=== PATIENT | female | born 1945 | race Caucasian/White ===

== ENCOUNTER 2020-05-07 08:28 | Day surgery (SDC) | payer MEDICARE, OTHER ==
[2020-04-30 12:14] LABS: BASOPHILS % (AUTO) 0.7 % (0-1); EOSINOPHILS # (AUTO) 0.1 X10'3 (0-0.9); EOSINOPHILS % (AUTO) 1.2 % (0-6); LYMPHOCYTES # (AUTO) 1.6 X10'3 (1.1-4.8); LYMPHOCYTES % (AUTO) 29.6 % (21-51); MEAN CORPUSCULAR HEMOGLOBIN 29.5 PG (27.0-31.0); MEAN CORPUSCULAR HGB CONC 32.5 g/dL (33.0-36.5); MEAN CORPUSCULAR VOLUME 90.9 FL (78-98); MEAN PLATELET VOLUME 8.2 FL (7.4-10.4); MONOCYTES # (AUTO) 0.4 X10'3 (0-0.9); MONOCYTES % (AUTO) 7.5 % (2-12); NEUTROPHILS # (AUTO) 3.4 X10'3 (1.8-7.7); PRE OP HEMATOCRIT 42.4 % (35.0-45.0); PRE OP HEMOGLOBIN 13.8 g/dL (12.0-16.0); PRE OP PLATELET COUNT 200 X10'3 (140-440); RED BLOOD COUNT 4.66 X10'6 (4.20-5.60); RED CELL DISTRIBUTION WIDTH 14.6 % (11.5-14.5)
[2020-04-30 12:31] LABS: HEMOGLOBIN A1C 6.8 % (4.5-6.2)
[2020-04-30 12:35] LABS: ALBUMIN 3.6 G/DL (3.4-5.0); ALBUMIN/GLOBULIN RATIO 0.9 (1.1-1.5); ALKALINE PHOSPHATASE 83 IU/L (46-116); BLOOD UREA NITROGEN 24 MG/DL (7-18); BUN/CREATININE RATIO 29.6 (6.6-38.0); CALCIUM 9.1 MG/DL (8.5-10.1); CHLORIDE 106 MMOL/L (99-107); CREATININE 0.81 MG/DL (0.40-0.90); PRE OP ALT 56 U/L (30-65); PRE OP ANION GAP 7 (8-16); PRE OP AST 39 U/L (10-37); PRE OP BILIRUB, TOTAL 0.5 MG/DL (0.0-1.0); PRE OP GLUCOSE 119 MG/DL (70-104); PRE OP POTASSIUM 4.4 MMOL/L (3.4-5.1); PRE OP SODIUM 142 MMOL/L (135-145); TOTAL CARBON DIOXIDE 28.7 MMOL/L (24-32); TOTAL PROTEIN 7.6 G/DL (6.4-8.2); eGFR 69 ML/MIN
[2020-05-07] VITALS (17 sets, daily range): BP systolic 120–162; BP diastolic 60–96
[~2020-05-07] VITALS: Ht 165.1 cm; Wt 77.1 kg
[~2020-05-07 08:28] MED LIST: ATOR-2 PO; DICL-182 PO; INSU100I8 SQ; INSU100V9 SQ; LEVO100T9 PO; LISI-604 PO; OMEP-50 PO; [UNRECOGNIZED DRUG - CODE] SQ; cefazolin/dext.iso 2gm/50ml 50 ML IV ONE; famotidine 20mg tablet PO ONE; ringers solution, lacted 1,000 ML IV SCH; tranexamic acid inj. 770 MG in normal saline 100ml IV soln 100 ML IV ONE; vancomycin 1,500 MG in NS 300ml IV soln IV ONE
[2020-05-07] MEDS ORDERED: morphine 2 MG/ML inj. syringe IV PRN (09:30)
[2020-05-07] MEDS ORDERED: ringers solution, lacted 1,000 ML IV SCH (09:30)
[2020-05-07] MEDS ORDERED: proCHLORperazine 10 MG/2 ml inj IV PRN (09:30)
[2020-05-07] MEDS ORDERED: meperidine/PF 25mg/ml syringe IV PRN ×3 (09:30)
[2020-05-07] MEDS ORDERED: ondansetron/PF 4mg/2ml inj IV PRN ×2 (09:30→14:10)
[2020-05-07] MEDS ORDERED: morphine 4 MG/ML inj SYRINge IV PRN (09:30)
--- NOTE | 2020-05-07 10:52 | NUR ---
[facility] REFERRAL PER DR HURST TO BEGIN [facility] TOMORROW. PLANNED D/C HOME POST OP LATER TODAY IF ABLE PER PT REQUEST. SPOKE WITH NATHANIEL IN CASE MANAGEMENT, SHE WILL INITIATE A HOME CARE REFERRAL AND FOLLOW UP NEEDED.
[2020-05-07] MEDS ORDERED: fentaNYL/PF 50MCG/1 ML 2ML syringe ONE (11:38)
[2020-05-07] MEDS ORDERED: ROPIVAcaine 0.5% (5mg/ml) 30ml vial ONE (11:38)
[2020-05-07] MEDS ORDERED: MIDAZolam 5mg/5ml vial ONE (11:39)
[2020-05-07] MEDS ORDERED: ROPIVAcaine 0.5% (5mg/ml) 30ml vial IJ ONE (13:10)
[2020-05-07] MEDS ORDERED: ketorolac trometh. 30mg/ml inj. IM ONE (13:11)
[2020-05-07] MEDS ORDERED: ROPIVAcaine 0.2%/PF PUMP/bolus 550 ML ADDCANAL SCH (13:20)
[2020-05-07] MEDS ORDERED: ROPIVAcaine 0.2% (10 MG/5 ML) BOLUS INJECTION ADDCANAL PRN (13:20)
[2020-05-07] MEDS ORDERED: acetaminophen 325mg tablet PO PRN (14:10)
[2020-05-07] MEDS ORDERED: non-formulary drug (Insulin Lispro (Humalog) 1 UNITS) SQ PRN (14:10)
[2020-05-07] MEDS ORDERED: oxyCODONE IR 5mg (immed. release) tablet PO PRN ×2 (14:10)
[2020-05-07] MEDS ORDERED: bisacodyl 10mg suppository rectal RC PRN (14:10)
[2020-05-07] MEDS ORDERED: diphenhydrAMINE 25mg capsule PO PRN ×2 (14:10)
[2020-05-07] MEDS ORDERED: HYDROmorphone 1 mg/ml syringe IV PRN (14:10)
[2020-05-07] MEDS ORDERED: magnesium hydroxide 30ml (MOM) UD suspension PO PRN (14:10)
[2020-05-07] MEDS ORDERED: HYDROmorphone inj. 0.5 MG/0.5 ML DISP.SYRIN IV PRN (14:10)
[2020-05-07] MEDS ORDERED: WALKERFR (14:12)
--- NOTE | 2020-05-07 14:28 | NUR ---
Received from OR via ORTHO BED , accompanied by Anesthesiologist DR QUINN and report given by Anesthesiolgist. SPINAL SENSATION AT MID THIGH LEVEL. DRSG TO LEFT KNEE CDI. POWEDER PACK IN PLACE. KNEE WRAP ON. IV INFUSING LR.
[2020-05-07] MEDS ORDERED: insulin Lispro (HumaLOG) vial - multi-dose SQ SCH (14:30)
--- NOTE | 2020-05-07 15:48 | NUR ---
PT TO ROOM 4022 B VIA ORTHO BED. REPORT GIVEN TO CORNELIO LLOYD WHO ASSUMED CARE OF PT. PT ORIENTED TO ROOM AND CALL LIGHT. BED LOW, LOCKED, RAILS UP X 2. CALL LIGHT IN REACH. BELONGING BAG TO PACU X 1, GLASSES IN BELONGING BAG. PT DENIES ANY MORE NAUSEA, NO PAIN AND STATES SHE IS READY FOR TRANSFER TO ORTHO FLOOR.
[2020-05-07] MEDS ORDERED: tranexamic acid inj. 800 MG in normal saline 100ml IV soln 100 ML IV ONE (17:00)
--- NOTE | 2020-05-07 18:15 | NUR ---
Patient in room ORTHO 4022. I have received report from PREMA Gates and had the opportunity to ask questions and assume patient care.
--- NOTE | 2020-05-07 18:42 | NUR ---
Problems reprioritized. Patient report given, questions answered & plan of care reviewed with PREMA Delgado.
[2020-05-07] MEDS ORDERED: DICLOFENAC 75 MG PO SCH (20:00)
[2020-05-07] MEDS ORDERED: vancomycin/NS 1 GM ADD-VANTAGE 250 ML IV SCH (20:00)
[2020-05-07] MEDS: gabapentin 300mg capsule PO SCH (20:27)
[2020-05-07] MEDS: acetaminophen 325mg tablet PO SCH (20:28)
[2020-05-07] MEDS: ceFAZolin 1GM/D5W- ADD-VANTAGE 50 ML IV SCH (20:28)
[2020-05-07] MEDS: potassium cl 20mEq in 1/2 NS 1,000 ML IV SCH ×2 (20:28→22:10)
[2020-05-07] MEDS: insulin glargine (Lantus) pen - multi-dose SQ SCH (20:38)
[2020-05-07] MEDS ORDERED: sennosides 8.6mg tablet PO SCH (21:00)
--- NOTE | 2020-05-07 21:26 | NUR ---
Pt blood sugar 298, pt requesting 16 units of [address]. Called Dr. Guillen, he stated to give pt 10 units of humalog.
[2020-05-07] MEDS ORDERED: insulin Lispro (HumaLOG) vial - multi-dose SQ ONE (21:30)
[2020-05-08] MEDS: ceFAZolin 1GM/D5W- ADD-VANTAGE 50 ML IV SCH (01:07)
[2020-05-08] MEDS: acetaminophen 325mg tablet PO SCH ×2 (01:14→09:07)
[2020-05-08 02:00] VITALS: BP 123/56
[2020-05-08 05:57] LABS: BASOPHILS % (AUTO) 0.1 % (0-1); EOSINOPHILS % (AUTO) 0 % (0-6); HEMATOCRIT 35.7 % (35.0-45.0); HEMOGLOBIN 11.8 g/dl (12.0-16.0); LYMPHOCYTES # (AUTO) 0.9 X10'3 (1.1-4.8); LYMPHOCYTES % (AUTO) 11.6 % (21-51); MEAN PLATELET VOLUME 8.3 FL (7.4-10.4); MONOCYTES # (AUTO) 0.3 X10'3 (0-0.9); MONOCYTES % (AUTO) 4.3 % (2-12); NEUTROPHILS # (AUTO) 6.6 X10'3 (1.8-7.7); PLATELET COUNT 159 X10'3 (140-440); RED BLOOD COUNT 3.92 X10'6 (4.20-5.60); RED CELL DISTRIBUTION WIDTH 14.2 % (11.5-14.5); WHITE BLOOD COUNT 7.9 X10'3 (4.5-11.0)
[2020-05-08 06:00] VITALS: BP 131/65
[2020-05-08 06:01] LABS: ANION GAP 7 (8-16); CHLORIDE 106 MMOL/L (99-107); SODIUM 137 MMOL/L (135-145); TOTAL CARBON DIOXIDE 23.7 MMOL/L (24-32)
--- NOTE | 2020-05-08 06:28 | NUR ---
Problems reprioritized. Patient report given, questions answered & plan of care reviewed with PREMA Saenz.
[2020-05-08] MEDS ORDERED: pantoprazole 40mg Tablet.DR PO SCH (07:30)
[2020-05-08] MEDS ORDERED: levoTHYROXINE 100mcg tablet PO SCH (08:00)
[2020-05-08] MEDS ORDERED: atorvastatin 20mg tablet PO SCH (08:00)
[2020-05-08] MEDS ORDERED: lisinopril 5mg tablet PO SCH (08:00)
[2020-05-08] MEDS ORDERED: aspirin 325mg tablet PO SCH (08:30)
[2020-05-08] MEDS: gabapentin 300mg capsule PO SCH (09:06)
[2020-05-08 09:08] VITALS: BP_SYST 120
[2020-05-08] MEDS: insulin glargine (Lantus) pen - multi-dose SQ SCH (09:18)
[2020-05-08] MEDS ORDERED: ONQPUMP ADDCANAL (10:12)
[2020-05-08] MEDS ORDERED: ASPI-1 PO (10:12)
[2020-05-09] MEDS ORDERED: acetaminophen 325mg tablet PO PRN (14:10)
== END 2020-05-08 11:45 | disposition home or self-care (01) ==
LOC: PAS 08:28 → ORTHO 4S 16:33 → PAS 05-08 11:45
PROVIDERS: ATTEND Orthopaedic Surgery
DX: M17.0 Bilateral primary osteoarthritis of knee (principal); E11.9 Type 2 diabetes mellitus without complications; I10 Essential (primary) hypertension; E66.9 Obesity, unspecified; Z68.29 Body mass index [BMI] 29.0-29.9, adult; G89.18 Other acute postprocedural pain; Z90.710 Acquired absence of both cervix and uterus; Z98.890 Other specified postprocedural states; Z79.899 Other long term (current) drug therapy; Z79.4 Long term (current) use of insulin; Z72.89 Other problems related to lifestyle; Z88.0 Allergy status to penicillin; Z20.828 Contact with and (suspected) exposure to other viral communicable diseases
CPT/HCPCS: 20985; 27447; 36415; 64448; 76942; 80051; 80053; 82948; 83036; 84443; 85025; 87081; 87635; 93005; 97110; 97116; 97161; A6454; C1713; C1758; C1776; J0690; J1815; J1885; J2250; J2405; J2795; J3010; J3370; J7040; J7120; A4215; A7000; G0378; J3480

== ENCOUNTER → 2020-05-17 | Outpatient (CLI) | payer MEDICARE, OTHER ==
[~2020-05-17] MED LIST changes: +ASPI-1 PO; +ONQPUMP ADDCANAL; +WALKERFR; -cefazolin/dext.iso 2gm/50ml 50 ML IV ONE; -famotidine 20mg tablet PO ONE; -ringers solution, lacted 1,000 ML IV SCH; -tranexamic acid inj. 770 MG in normal saline 100ml IV soln 100 ML IV ONE; -vancomycin 1,500 MG in NS 300ml IV soln IV ONE
== END | disposition home or self-care (01) ==
LOC: VAS 09:58
PROVIDERS: ATTEND Orthopaedic Surgery
DX: M25.562 Pain in left knee (principal); Z96.659 Presence of unspecified artificial knee joint
CPT/HCPCS: 93971

== ENCOUNTER 2022-04-14 16:53 | Emergency (ER) | payer MEDICARE, BC ==
[~2022-04-14] VITALS: Ht 167.6 cm; Wt 77.0 kg
[~2022-04-14 16:53] MED LIST changes: -LISI-604 PO; +LISI5TAB22 PO; -OMEP-50 PO; +OMEP20CA16 PO
--- NOTE | 2022-04-14 18:53 | NUR ---
PT ROOMED TO BED 9. ASSUMED CARE OF PT.
[2022-04-14 19:27] LABS: CLARITY,URINE CLEAR (Clear); GLUCOSE, URINE NEGATIVE (Neg); KETONES,URINE TRACE mg/dl (Neg); LEUKOCYTE ESTERASE ,URINE TRACE (Neg); NITRITES, URINE NEGATIVE (Neg); OCCULT BLOOD,URINE NEGATIVE (Neg); PROTEIN,URINE NEGATIVE (Neg)
[2022-04-14 19:30] LABS: COLOR,URINE DARK YELLOW (Yellow); UA COLLECTION TYPE CLN CATCH MIDSTREAM
[2022-04-14 19:39] LABS: BACTERIA,URINE 2+ /HPF (Neg); CAL OXALATE CRYSTALS 1+ /HPF (NEGATIVE); HYALINE CASTS 0-3 /LPF (NEGATIVE); MUCUS STRANDS FEW /LPF (Neg); RBC,URINE 0-2 /HPF (0-2); SQUAMOUS EPITHELIAL CELL,UR FEW /LPF (FEW)
[2022-04-14 21:31] VITALS: BP 142/71
--- NOTE | 2022-04-18 17:41 | NUR ---
PT CALLED REGARDING VISIT AND LAB RESULTS ON 04/14/22. PT INFORMED THAT SHE HAS A UTI AND AN ABX WOULD BE ORDERED FOR HER. PT REQUESTED RX BE CALLED TO [facility] [address],/. KEFLEX 500MG; 1 PO TID x7 DAYS WAS CALLED TO [facility] [address] REQUESTED
== END 2022-04-14 21:32 | disposition home or self-care (01) ==
LOC: ER 16:53
DX: R10.9 Unspecified abdominal pain (principal); M54.9 Dorsalgia, unspecified; E78.00 Pure hypercholesterolemia, unspecified; I10 Essential (primary) hypertension; E11.9 Type 2 diabetes mellitus without complications; Z87.442 Personal history of urinary calculi; Z90.710 Acquired absence of both cervix and uterus; Z72.89 Other problems related to lifestyle; Z79.82 Long term (current) use of aspirin; Z79.4 Long term (current) use of insulin; Z79.899 Other long term (current) drug therapy
CPT/HCPCS: 76770; 81001; 87077; 87088; 87186; 99284

== ENCOUNTER 2025-06-22 15:14 | Outpatient (CLI) | payer MEDICARE, OTHER ==
[~2025-06-22 15:14] MED LIST changes: +[UNRECOGNIZED DRUG - CODE] SQ; -[UNRECOGNIZED DRUG - CODE] SQ
--- NOTE | 2025-06-22 17:01 | RADIOLOGY REPORT ---
PROCEDURE: MR MRI LUMBAR SPINE Indication: SPONDYLOSIS W/O MYELOPATHY OR RADICULOPATHY, LUMBAR REGION COMPARISON: None TECHNIQUE: Multiplanar multisequence images of the the lumbar spine are obtained. FINDINGS: For the purpose of this examination, there are 5 lumbar vertebral body types counting from the lumbosacral junction. Lumbar dextrocurvature. Moderate to advanced multilevel disc space narrowing and desiccation most pronounced at L2-3. Degenerative edematous endplate changes at L2-3. Conus terminates at the L1 level. Lumbar heights are grossly preserved. L1-2: 3 mm disc protrusion. Peph-sw-diboiiya facet and flavum hypertrophy. No spinal canal stenosis. Moderate right and bkyo-dy-gmftogto left neural foraminal stenosis. L2-3: Left foraminal / paracentral disc protrusion extending 6 mm posterolaterally. Moderate facet and flavum hypertrophy. Thecal sac measures 10 mm AP. No spinal canal stenosis. Severe left and armj-xk-fjlilznd right neural foraminal stenosis. L3-4: 4 mm disc protrusion. Severe facet and flavum hypertrophy. Thecal sac measures 5 mm AP. Severe spinal canal stenosis bilaterally. Moderate bilateral neural foraminal stenosis. L4-5: 3 mm broad-based disc protrusion. Moderate to advanced facet and flavum hypertrophy. Thecal sac measures 6 mm AP. Moderate to severe spinal canal stenosis. Severe bilateral neural foraminal stenosis. L5-S1: 2 mm disc protrusion. Moderate to severe facet and flavum hypertrophy. No spinal canal stenosis. Moderate right and mild left neural foraminal stenosis. Bilateral facet joint effusions, qbpih-jxuixvd-kfua-left. Ymri-li-rhmfmzyl bilateral sacroiliac degenerative joint disease. IMPRESSION: Moderate to severe lumbar degenerative disc disease. Severe spinal canal stenosis L3-4. Moderate to severe spinal canal stenosis at L4-5. Multilevel moderate to severe neural foraminal stenosis as described above.
== END 2025-06-22 23:59 | disposition home or self-care (01) ==
LOC: MRI02 15:14
PROVIDERS: ATTEND Physician Assistant
DX: M51.27 Other intervertebral disc displacement, lumbosacral region (principal); M62.838 Other muscle spasm; M47.816 Spondylosis without myelopathy or radiculopathy, lumbar region; M47.817 Spondylosis without myelopathy or radiculopathy, lumbosacral region; M48.07 Spinal stenosis, lumbosacral region
CPT/HCPCS: 72148